=== PATIENT | female | born 1935 | race Caucasian/White ===

== ENCOUNTER 2018-10-08 07:38 | Inpatient (IN) ==
[2018-10-08] MEDS ORDERED: TYLENOL PO PRN (07:56)
[2018-10-08] MEDS ORDERED: NS 1,000 ML IV PRN (07:56)
[2018-10-08] MEDS ORDERED: SALINE LOCK IV FLUID XX ONE (07:56)
[2018-10-08] MEDS ORDERED: ZOFRAN IV PRN (07:56)
[2018-10-08] MEDS: CRESTOR PO SCH (10:04)
[2018-10-08 10:22] LABS: ALB/GLOB RATIO 1.7; ALBUMIN 4.1 g/dL (3.5-5.0); CALCIUM 8.7 mg/dL (8.8-10.2); INR 0.93; POTASSIUM 3.8 mmol/L (3.5-5.1); PROTIME 13.2 Seconds (11.0-16.0); TOTAL BILIRUBIN 0.33 mg/dL (0.20-1.00); TOTAL PROTEIN 6.5 g/dL (6.3-8.3)
[2018-10-08 10:27] LABS: BASO# 0.02 X1000 (0.0-0.2); BASO% 0.6 % (0.0-0.8); EOS# 0.04 X1000 (0.0-0.7); EOS% 1.1 % (0.0-10.0); HEMATOCRIT 38.6 % (37.0-47.0); HEMOGLOBIN 13.1 g/dL (12.0-16.0); LYMPH# 0.73 X1000 (1.2-3.4); LYMPH% 20.3 % (20.5-51.1); MCH 31.6 PG (27-31); MCHC 33.9 g/dL (33-37); MONO# 0.27 X1000 (0.11-0.59); MONO% 7.5 % (1.7-9.3); MPV 9.7 FL (7.4-10.4); NEUT# 2.53 X1000 (1.4-6.5); NEUT% 70.5 % (42.2-75.2); PLT 269 X1000 (130-400); RBC 4.15 XMIL (4.2-5.4); RDW 12.1 % (11.5-14.5); WBC 3.59 X1000 (4.8-10.8)
[2018-10-08] MEDS ORDERED: GOLYTELY PO ONE (14:00)
[2018-10-08 14:06] LABS: URINE SOURCE CLEAN CATCH
[2018-10-08 14:16] LABS: BILIRUBIN URINE NEGATIVE (NEGATIVE); BLOOD URINE NEGATIVE (NEGATIVE); COLOR YELLOW; GLUCOSE URINE NEGATIVE (NEGATIVE); KETONE URINE 20 mg/dL (NEGATIVE); LEUKOCYTES URINE NEGATIVE (NEGATIVE); NITRITE URINE NEGATIVE (NEGATIVE); PROTEIN URINE NEGATIVE (NEGATIVE); SP GRAVITY URINE 1.011; TURBIDITY URINE CLEAR (CLEAR); UROBILINOGEN URINE NORMAL (NORMAL)
[2018-10-08 14:17] LABS: UR EPITHELIAL CELLS <10 /HPF (<10); URINE BACTERIA NEGATIVE /HPF; URINE RBC <10 /HPF (<10); URINE WBC <10 /HPF (<10)
--- NOTE | 2018-10-08 21:10 | HISTORY AND PHYSICAL ---
INDICATION: Right lower quadrant pain. Abnormal CT scan suggesting a cecal mass and history of accelerated weight loss. HISTORY OF PRESENT ILLNESS: Ms. Black is a pleasant 83-year-old female patient of mine with multiple medical problems including, but not limited to epigastric and right lower quadrant pain over the past several months. Based on persistence of discomfort, a CT scan of the abdomen and pelvis was obtained demonstrating evidence of what appears to be a luminal defect suspicious for a mass of some type. It was felt that a colonoscopy would be indicated based on history of localizing pain to the right lower quadrant. She subsequently was referred to GI and attempted an outpatient prep but this prep was aborted secondary to intractable nausea and vomiting and increasing abdominal pain. It was felt that she would be best served by being admitted and undergo a GoLYTELY prep. She was anticipated for the procedure on Monday; however, GI has informed me that they will be unable to accommodate her on the schedule for Monday and she will need to wait until Monday. She is otherwise hemodynamically stable. Not complaining of any pain at this time. She is admitted for bowel prep and colonoscopy. ALLERGIES: To Demerol nausea and vomiting. Streptomycin resulting in swelling. Morphine with nausea vomiting and dry heaves and Vytorin with flu-like symptoms. MEDICATIONS ON ADMISSION: Including MiraLAX 17 g once a day, vitamin D 2000 international units once daily, B12 a 1000 mcg once a month, Colace 100 mg p.o. daily, Cardizem 120 mg once daily, losartan 25 mg once daily, Nexium 40 mg once daily, Lasix 20 mg once daily, Crestor 5 mg once daily. PAST MEDICAL HISTORY: Includes but is not limited to, cervical neck pain, lower extremity cramps, hiatal hernia, disorder of white blood cells, diverticulosis, dysphonia, and epigastric pain, family history of malignant neoplasm of breast, reflux without esophagitis, lupus, dyslipidemia, right elbow hip and shoulder pain, immunoglobulin deficiency, constipation, solitary pulmonary nodule, thrombocytopenia, urge incontinence, and B12 and vitamin D deficiency. FAMILY HISTORY: Father at 93 years old. Coronary disease. Mother , 95 years old. Atherosclerotic coronary artery disease. Brother 74 blood pressure, and lipids. Brother 72 emphysema. Sister 70 high blood pressure and sister 60 unremarkable. Sister 72, ovarian cancer, 2012. The patient is with 4 children ranging between the ages of 61 and 51. She has 11 and natural grandchildren and 2 step great grandchildren. She has 14 great-grandchildren and 2 step great grandchildren. Twenty-nine grandchildren in all. She has been since 1986 for 32 years. 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 The patient is a nonsmoker and nondrinker. Last annual wellness visit. October 2017. Last physical exam March of 2018. REVIEW OF SYSTEMS: A 12-point review of systems is unremarkable except that noted within the HPI above. As of March 2018, thrombocytopenia was noted to be intervally improved; however, she continued with a leukopenia. B12 level had been replaced at 578. Vitamin D had been replaced to 45.5. She continues medicated on statin at goal with total cholesterol 194 and LDL at 85. Patient with history of hiatal hernia and Schatzki's ring dating back to 2010. Recent EGD of record noted to be 2013. The patient is unable to come completely off proton pump inhibitor and may benefit from additional endoscopy at the time of colonoscopy. Histories of a chronic constipation may be multifactorial in part including iatrogenic as well as postsurgical secondary to adhesions. It will be interesting to note whether in the cecal area there is enough luminal irregularity to resulted in constipation. Patient with new diagnosis of lupus as recently as March 2016. This based on a skin biopsy. She has historically been on Plaquenil but is currently not taking Plaquenil at this time. Recent issues for physical in March including eye problems and nonspecific blurring of vision and some issues with balance. PHYSICAL EXAMINATION: VITALS: Blood pressure 125/68, respirations at 18, pulse at 80, temperature 98 degrees, saturating 99% on room air. HEENT: Normocephalic atraumatic. Pupils are equal and reactive to light and accommodation. NECK: Soft and supple without lymphadenopathy or bruits. CARDIOVASCULAR: Regular rate and rhythm without murmurs, gallops, or rubs. LUNGS: Clear to auscultation. ABDOMEN: Soft, nonspecific tenderness in the epigastric region as well as in the right lower quadrant without rebound or guarding. GENITOURINARY/RECTAL: Exams are deferred. EXTREMITIES: Benign, without clubbing, cyanosis, or edema. NEUROLOGICAL: Cranial nerves 2-12 are grossly intact. Patient is alert oriented x3 without any cognitive deficiencies. LABORATORY: Obtained on admission showing a neutropenia with a white blood cell count at 3.59. H H at 13.1 and 38.6 with platelets at 269,000. PT/INR are normal at 13.2 and 0.93. Chemistry is unremarkable. Sodium 140, potassium 3.8, chloride 101, bicarb 29, BUN and creatinine of 11 and 1.0. GFR estimated at 53 mL/minute. Glucose at 84, calcium at 8.7. AST and ALT at 17 and 13 respectively. Urinalysis is negative. IMAGING: CT scan of the abdomen and pelvis dated 12/17/2014. At that time where she was admitted for refractory diverticulitis. Last CT scan is performed at outside facility. Most recent CT scan of the chest dated April 2011 demonstrating some linear opacities present at the time of the abdominal study dated 12/17/2014 likely due to fibrosis. A small nodule on the right middle lobe is noted measuring less than 6 mm. Presence of a small hiatal hernia is noted on CT scan. IMPRESSION: An 83-year-old patient with weight loss, right lower quadrant pain and abnormal CT scan suggestive of cecal mass versus a lesion likely resulting in nonspecific right lower quadrant pain. Patient unable to complete outpatient bowel prep. She is now been admitted to the internal medicine service for a more conservative and slower approach to bowel prep in an effort to perform a colonoscopy. Last colonoscopy of record is noted to be 2006. She was advised at that time, that no additional colonoscopies would be indicated based on current clinical presentation, but this approach has been reconsidered and she is now being prepped for a colonoscopy. She is otherwise hemodynamically stable and afebrile. At this time. We will continue to follow clinically in this regard. The patient understands the course of treatment and plan. No further issues at this time. Note is dictated on the evening of admission. cc: Celestine Em DO
--- NOTE | 2018-10-08 21:11 | GASTROENTEROLOGY CONSULTATION ---
DATE: 10/08/2018 REASON FOR CONSULTATION: Inpatient colonoscopy, indications for abnormal CT scan. HISTORY OF PRESENT ILLNESS: This is an 83-year-old white female known to our practice. She was last seen in our office in November of 2017. At that time, she was taking MiraLAX and stool softeners and added Cassie-Colace as needed. She was taking Nexium daily. We had recommended she do Hemoccult stool cards, and she did not follow back on doing those cards. Hemoccult cards in 2017 were negative. Due to her age, we had decided not to proceed with colonoscopy since she was not having problems unless her Hemoccult cards came back positive. At the time of her visit in November of 2017, she was not complaining of any blood in the stool or black stools and no reported abdominal pain. The patient was referred by Dr. Celestine Em for abnormal CT scan and right lower quadrant pain. She was scheduled for an outpatient colonoscopy last week but had to cancel the procedure because she was not able to tolerate the colon prep. She states after taking a small amount of the prep, she had nausea and vomiting. She tried magnesium citrate and still could not tolerate and get cleaned out as needed. She had a CT scan on 10/01/[address] Celestine Em for right lower quadrant abdominal pain. Findings showed a questionable mass along the lateral wall of the cecum versus retained fecal material along with mild to moderate constipation and retained fecal material throughout the colon. Findings also showed scattered low- density within the head and proximal body of the pancreas, which was stable from previous studies, mild thoracolumbar scoliosis and history of hysterectomy. The patient has denied visible blood in the stool or black stools. She does take MiraLAX and Colace for constipation. She has noticed pain in her left hip and left lower quadrant that she was following with Dr. Em for. PAST MEDICAL HISTORY: History of irregular heart rate, coronary artery disease with history of SVT and ablation, lupus, hypercholesterolemia. PAST SURGICAL HISTORY: Cardiac ablation, appendectomy, last colonoscopy in 2006, last EGD 2013, hysterectomy, wisdom teeth extraction. ALLERGIES: Ceclor causing nausea. Vytorin unknown reaction. Demerol nausea and vomiting. Morphine nausea and vomiting. Streptomycin rash. HOME MEDICATIONS: Chlor-Trimeton allergy medication as needed, vitamin D3 2000 units daily, Diltiazem 120 mg every morning, Nexium 40 mg daily, Lasix 20 mg daily, Plaquenil 200 mg daily, Cozaar 25 mg daily, MiraLAX 17 g daily, Crestor 10 mg daily, Cassie-Colace 2 tablets every night. 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 No tobacco use. No alcohol use. FAMILY HISTORY: Colon cancer in a maternal grandfather. REVIEW OF SYSTEMS: Per history of present illness. PHYSICAL EXAMINATION: Vital Signs: Temperature 98.1 degrees, pulse 70, respirations 16, blood pressure 120/69. General: Patient is awake and alert in no acute distress. HEENT: Normocephalic, atraumatic. Pupils equal, round, reactive to light. Sclerae nonicteric. Respiratory: Lung sounds essentially clear bilaterally. Cardiovascular: Regular rate and rhythm. Abdomen: Soft, nontender. Positive bowel sounds. Extremities: No lower extremity edema noted. LABORATORY: Hematology: WBC 3.59, hemoglobin 13.1, hematocrit 38.6, MCV 93.0, platelets 269,000. Coagulation: Protime 13.1, INR 0.93. Chemistry: Sodium 140, potassium 3.8, chloride 101, CO2 29, BUN 11, creatinine 1.0, glucose 84, calcium 8.7, total bilirubin 0.33, AST 17, ALT 13, alkaline phosphatase 55. ASSESSMENT AND PLAN: 1. Right lower quadrant abdominal pain. 2. Abnormal findings on CT scan showing questionable mass versus fecal material in the colon. The patient needs a colonoscopy. She was not able to tolerate the colon prep as an outpatient. The patient was admitted for inpatient colonoscopy. We will plan to proceed with colonoscopy on Monday. I have discussed the colon prep along with procedure benefits and risks, and patient wishes to proceed. I have discussed this case with Dr. Coon. Thank you for this consultation. Dictated by ARLENE Leal for Shoaib Coon MD cc: ARLENE Rogers MD Jeffrey A. Johnson,
[2018-10-09] MEDS: PRILOSEC PO SCH (06:21)
[2018-10-09] MEDS: VITAMIN D PO SCH ×2 (10:20→20:48)
[2018-10-09] MEDS: CRESTOR PO SCH (10:20)
[2018-10-09] MEDS ORDERED: GOLYTELY PO ONE (14:00)
[2018-10-09] MEDS: PLAQUENIL PO SCH (18:44)
[2018-10-09] MEDS: CARDIZEM CD PO SCH (18:44)
--- NOTE | 2018-10-09 22:27 | GASTROENTEROLOGY PROGRESS NOTE ---
DATE: 10/09/2018 SUBJECTIVE: Patient denies complaints today. She is scheduled for colonoscopy tomorrow. She will start drinking her colon prep today at 2 o'clock. OBJECTIVE: Vital Signs: Temperature 98.0, pulse 73, respirations 16, blood pressure 147/85. General: Patient is awake and alert, in no acute distress. LABORATORY: Hematology: WBC 3.59, hemoglobin 13.1, hematocrit 38.6, MCV 93.0. Coagulation protime 13.2, INR 0.93. Chemistry: Sodium 140, potassium 3.8, chloride 101, CO2 29, BUN 11, creatinine 1.0, glucose 84, calcium 8.7, total bilirubin 0.33. AST 17, ALT 13, alkaline phosphatase 55. ASSESSMENT AND PLAN: 1. Right lower quadrant abdominal pain. 2. Abnormal findings on CT scan that showed questionable mass versus fecal material in the colon. The patient was unable to tolerate outpatient colon prep. She was admitted for inpatient colonoscopy, which will be done on 10/10/2018. Patient is aware of risks versus benefits of the colonoscopy and wishes to proceed. I have discussed this case with Dr. Coon. Further plans will be made according to colonoscopy findings. Dictated by ARLENE Leal for Shoaib Coon MD cc: ARLENE Rogers MD Jeffrey A. Johnson, DO
[2018-10-10] MEDS: PRILOSEC PO SCH ×2 (05:43→06:10)
[2018-10-10 07:05] LABS: BASO# 0.01 X1000 (0.0-0.2); BASO% 0.4 % (0.0-0.8); EOS# 0.07 X1000 (0.0-0.7); EOS% 2.9 % (0.0-10.0); HEMATOCRIT 37.4 % (37.0-47.0); HEMOGLOBIN 12.7 g/dL (12.0-16.0); LYMPH# 0.59 X1000 (1.2-3.4); LYMPH% 24.3 % (20.5-51.1); MCH 31.4 PG (27-31); MCV 92.6 FL (81-99); MONO# 0.28 X1000 (0.11-0.59); MONO% 11.5 % (1.7-9.3); MPV 9.6 FL (7.4-10.4); NEUT# 1.48 X1000 (1.4-6.5); NEUT% 60.9 % (42.2-75.2); PLT 231 X1000 (130-400); RBC 4.04 XMIL (4.2-5.4); RDW 12.2 % (11.5-14.5); WBC 2.43 X1000 (4.8-10.8)
[2018-10-10 07:25] LABS: AGAP 13; ALB/GLOB RATIO 1.9; ALBUMIN 3.7 g/dL (3.5-5.0); ALKALINE PHOSPHATASE 52 U/L (32-104); BUN 5 mg/dL (8-22); CALCIUM 9.3 mg/dL (8.8-10.2); CHLORIDE 103 mmol/L (98-107); COSMO 281; CREATININE 0.8 mg/dL (0.5-0.9); ESTIMATED GFR > 60; GLUCOSE 79 mg/dL (70-104); GOT 19 U/L (10-30); GPT 13 U/L (10-36); POTASSIUM 3.8 mmol/L (3.5-5.1); SODIUM 143 mmol/L (136-145); TCO2 27 mmol/L (25-35); TOTAL PROTEIN 5.7 g/dL (6.3-8.3)
[2018-10-10] MEDS ORDERED: COZAAR PO SCH (09:00)
[2018-10-10] MEDS: CARDIZEM CD PO SCH (09:32)
[2018-10-10] MEDS: PLAQUENIL PO SCH (09:33)
[2018-10-10] MEDS: CRESTOR PO SCH (09:33)
[2018-10-10] MEDS ORDERED: XYLOCAINE-MPF 2% ONE (16:26)
[2018-10-10] MEDS ORDERED: DIPRIVAN 1% ONE (16:26)
--- NOTE | 2018-10-10 16:55 | ENDOSCOPY OPERATIVE NOTE ---
[facility] ENDOSCOPY OPERATIVE NOTE , PATIENT: Kayla Black ADM DATE: MR #: [id number] : 1935 COLONOSCOPY PROCEDURE REPORT PROCEDURE DATE: 10/10/2018 SURGEON: Shoaib Coon MD STATUS: inpatient CARD HANGER: Tran Hahn and Prudence Dooley PREOPERATIVE DIAGNOSIS: The patient is a 83 yr old female here for a colonoscopy due to an abnormal CT and Mass in the Cecum. PROCEDURE PERFORMED: Colonoscopy with snare polypectomy MEDICATIONS: Per Anesthesia PREP TYPE: GoLytely
[2018-10-10 17:27] VITALS: BP 136/63
[2018-10-10] MEDS ORDERED: PERICOLACE PO SCH (21:00)
--- NOTE | 2018-10-11 13:11 | DISCHARGE SUMMARY ---
ADMISSION DATE: 10/08/2018 DISCHARGE DATE: 10/10/2018 DISCHARGE DIAGNOSES: 1. Intestinal polyps. Pathology pending at the time of discharge. 2. Abnormal imaging of the abdomen and pelvis secondary to right lower quadrant pain with questionable intraluminal/cecal mass. This is not demonstrated on colonoscopy. CONSULTATIONS DURING ADMISSION: Include GI. PROCEDURES DURING ADMISSION: Include a colonoscopy with findings as mentioned in operative report. HOSPITAL COURSE: Ms. Black was admitted to the Internal Medicine Clinic after failing outpatient prep for a diagnostic colonoscopy secondary to nausea, vomiting, and abdominal pain. She was admitted to the Internal Medicine Service, underwent a very slow prep, and underwent a colonoscopy this afternoon without any significant complications or findings. She is clinically stable for discharge to home, and will follow up in the Internal Medicine Clinic within the next 7 days or so. DISCHARGE MEDICATIONS: Include diltiazem 120 mg once daily, Plaquenil 200 mg once daily, Cozaar 25 mg once daily, Crestor 10 mg once daily, vitamin D 2000 international units once daily, and Lasix 20 mg once daily. DISPOSITION: The patient understands the course of treatment and plan. No further issues at this time. Note is dictated on the evening of discharge. cc: Celestine Em DO
== END 2018-10-10 19:26 | disposition home or self-care (01) | DRG 395 ==
LOC: DIRADM 07:38 → 4N 07:55
PROVIDERS: ADMIT Internal Medicine; ATTEND Internal Medicine
CPT/HCPCS: 80053; 81001; 83735; 85025; 85610; 88305; 88313; A9270